=== PATIENT | female | born 1980 | race Caucasian/White ===

== ENCOUNTER 2016-08-05 17:48 | Emergency (ER) | payer OTHER | END 2016-08-05 20:46 | disposition home or self-care (01) | LOC: ER1 17:48 | DX: L02.412 Cutaneous abscess of left axilla (principal); F17.210 Nicotine dependence, cigarettes, uncomplicated; Z88.1 Allergy status to other antibiotic agents | CPT/HCPCS: 10061; 87070; 87205; 99283 ==

== ENCOUNTER 2016-08-06 11:20 | Emergency (ER) | payer OTHER | END 2016-08-06 11:45 | disposition home or self-care (01) | LOC: ER1 11:20 | DX: L02.412 Cutaneous abscess of left axilla (principal); F17.210 Nicotine dependence, cigarettes, uncomplicated | CPT/HCPCS: 99282 ==